=== PATIENT | female | born 1990 | race Caucasian/White ===

== ENCOUNTER 2019-12-21 17:56 | Emergency (ER) | payer SELFPAY ==
[~2019-12-21] VITALS: Ht 152.4 cm; Wt 57.0 kg
[2019-12-21 18:04] VITALS: BP 122/88
== END 2019-12-21 19:30 | disposition left against medical advice (07) ==
LOC: EMS 17:57
DX: N39.0 Urinary tract infection, site not specified (principal); Z53.21 Procedure and treatment not carried out due to patient leaving prior to being seen by health care provider